=== PATIENT | female | born 1960 | race Caucasian/White ===

== ENCOUNTER 2017-08-31 11:44 | Emergency (ER) | payer OTHER ==
[~2017-08-31] VITALS: Ht 152.4 cm; Wt 93.0 kg
[2017-08-31 14:52] VITALS: BP 116/72
[2017-08-31] MEDS ORDERED: KETOROLAC 30 MG/1 ML IM ONE (15:00)
[2017-08-31] MEDS ORDERED: KETOROLAC 30 MG/1 ML ONE (15:12)
[2017-08-31] MEDS ORDERED: OXYcodone/APAP 5/325MG TABLET ONE (16:11)
[2017-08-31] MEDS ORDERED: OXYcodone/APAP 5/325MG TABLET PO ONE (16:30)
== END 2017-08-31 16:41 | disposition home or self-care (01) ==
LOC: ED 16:15
DX: S43.402A Unspecified sprain of left shoulder joint, initial encounter (principal); S93.402A Sprain of unspecified ligament of left ankle, initial encounter; S39.012A Strain of muscle, fascia and tendon of lower back, initial encounter; V49.49XA Driver injured in collision with other motor vehicles in traffic accident, initial encounter; Y93.89 Activity, other specified; Y99.8 Other external cause status; Y92.488 Other paved roadways as the place of occurrence of the external cause
CPT/HCPCS: 72170; 73030; 73610; 76857; 96372; 99284; J1885